=== PATIENT | male | born 1965 ===

== ENCOUNTER 2016-07-14 15:05 | Inpatient (IN) | payer BC ==
--- NOTE | 2016-07-14 15:56 | C.PDOC ---
History Of Present Illness 50 y/o male presents to the ED requesting heroin detox. Last use was this morning. Pt prescreened. Denies alcohol or other drug use. Smokes cigarettes. No physical complaints at this time. Chief Complaint (Nursing): Substance Abuse History Per: Patient History/Exam Limitations: no limitations Current Symptoms Are (Timing): Still Present Suicide/Self Injury Attempted (Context): None Modifying Factor(s): Narcotics Severity: Mild Involuntary Hold By: None Recent travel outside of the [place]: No Past Medical History Reviewed: Historical Data, Nursing Documentation, Vital Signs Vital Signs: Last Vital Signs Temp 98.3 F 07/14/16 15:14 Pulse 82 07/14/16 15:14 Resp 15 07/14/16 15:14 BP 108/73 07/14/16 15:14 Pulse Ox 95 07/14/16 16:15 - Medical History PMH: Depression Family History: States: Unknown Family Hx - Social History Hx Alcohol Use: No Hx Substance Use: Yes - Immunization History Hx Tetanus Toxoid Vaccination: No Hx Influenza Vaccination: No Hx Pneumococcal Vaccination: No Review Of Systems Except As Marked, All Systems Reviewed And Found Negative. Constitutional: Negative for: Fever Cardiovascular: Negative for: Chest Pain Respiratory: Negative for: Shortness of Breath Gastrointestinal: Negative for: Vomiting Neurological: Negative for: Headache Physical Exam - Physical Exam Appears: Non-toxic, No Acute Distress Skin: Warm, Dry, No Rash Head: Atraumatic, Normacephalic Neck: Normal, Normal ROM, Supple Chest: Symmetrical Cardiovascular: Rhythm Regular, No Murmur Respiratory: Normal Breath Sounds, No Rales, No Rhonchi, No Wheezing Extremity: Bilateral: Atraumatic Neurological/Psych: Oriented x3, Normal Speech ED Course And Treatment - Laboratory Results Result Diagrams: 07/14/16 16:08 07/14/16 16:08 O2 Sat by Pulse Oximetry: 95 (room air) Pulse Ox Interpretation: Normal Medical Decision Making Medical Decision Making: Plan: * labs * UA * CRISIS evaluation Labs ordered and reviewed. In my clinical judgment patient is medically cleared and stable for psychiatric admission. Patient accepted to Dr Jeffrey melgoza for opiate dependence Disposition - Disposition Disposition: HOSPITALIZED Disposition Time: 17:50 Condition: STABLE - POA Present On Arrival: None - Clinical Impression Clinical Impression: Opiate dependence - PA / COMMERCIAL MANAGER / Resident Statement /DO has reviewed & agrees with the documentation as recorded. - Scribe Statement The provider has reviewed the documentation as recorded by the Jose A Dent All medical record entries made by the Dirkibe were at my direction and personally dictated by me. I have reviewed the chart and agree that the record accurately reflects my personal performance of the history, physical exam, medical decision making, and the department course for this patient. I have also personally directed, reviewed, and agree with the discharge instructions and disposition. Decision To Admit - Pt Status Changed To: Hospital Disposition Of: Inpatient - Admit Certification Admit to Inpatient:: After my assessment, the patient will require hospitalization for at least two midnights. This is because of the severity of symptoms shown, intensity of services needed, and/or the medical risk in this patient being treated as an outpatient. - InPatient: Physician Admission Certification: I certify that this patient requires 2 or more midnights of care for the following reason:: patient for detox for opiates - . Bed Request Type: Detox Admitting Physician: Dallas Murphy Patient Diagnosis: Opiate dependence
[2016-07-14 16:12] LABS: BASO % 0.5 % (0.0-2.0); EOS # 0.2 K/uL (0.0-0.7); EOS % 2.5 % (0.0-4.0); HEMATOCRIT 41.2 % (35.0-51.0); LYMPH # 3.3 K/uL (1.0-4.3); LYMPH % 42.1 % (20.0-40.0); MEAN CELL VOLUME 83.9 fL (80.0-94.0); MEAN CORPUSCULAR HEMOGLOBIN 28.1 pg (27.0-31.0); MEAN CORPUSCULAR HGB CONC 33.5 g/dL (33.0-37.0); MEAN PLATELET VOLUME 8.3 fL (7.2-11.7); MONO # 0.6 K/uL (0.0-0.8); MONO % 7.5 % (0.0-10.0); RED CELL DISTRIBUTION WIDTH 12.9 % (11.5-14.5); WHITE BLOOD COUNT 7.8 K/uL (4.8-10.8)
[2016-07-14 16:25] LABS: RBC URINE 2 /hpf (0-3); URINE BILIRUBIN NEGATIVE (NEGATIVE); URINE BLOOD NEGATIVE (NEGATIVE); URINE COLOR Yellow (YELLOW); URINE GLUCOSE (UA) NORMAL (Normal); URINE KETONE NEGATIVE (NEGATIVE); URINE LEUKOCYTE ESTERASE NEG Leu/uL (Negative); URINE PROTEIN NEGATIVE (NEGATIVE); WBC URINE 1 /hpf (0-5)
[2016-07-14 16:28] LABS: CHLORIDE 102 mmol/L (98-107)
[2016-07-14 16:29] LABS: POTASSIUM 4.2 mmol/L (3.6-5.2); SODIUM 138 mmol/L (132-148)
[2016-07-14 16:32] LABS: ALB/GLOB RATIO 1.1 (1.0-2.1); ALKALINE PHOSPHATASE 80 U/L (38-126); ALT/SGPT 15 U/L (21-72); AST/SGOT 21 U/L (17-59); BILIRUBIN,TOTAL 0.7 mg/dL (0.2-1.3); BLOOD UREA NITROGEN 17 mg/dL (9-20); CARBON DIOXIDE 28 mmol/L (22-30); GFR AFRICAN-AMERICAN > 60; GLUCOSE,RANDOM 104 mg/dL (75-110); TOTAL PROTEIN 7.6 g/dL (6.3-8.3)
[2016-07-14 16:33] LABS: ALCOHOL SERUM < 10 mg/dl (0-10); CALCIUM 8.7 mg/dl (8.6-10.4)
[2016-07-14] MEDS ORDERED: Aluminum Hydroxide/Magnesium Hydroxide Susp (30 mL) PO PRN (22:40)
[2016-07-15] MEDS: buPROPion 150 mg/24 Hours XL Tab PO SCH (11:25)
--- NOTE | 2016-07-15 14:16 | PCM.PSYCH ---
Initial Psychiatric Evaluation - Initial Psychiatric Evaluation Legal Status: Capacity Chief Complaint (in patient's own words): "I need heroin detox" History of Present Illness and Precipitating Events: Pt is a 50 y/o Male. He lives with his and two children ages 11 and 15. He has correction disability after 4 spinal surgeries and a hip replacement. Pt came to [facility] for detox from Heroin. Pt has been using Heroin since he was 15. He snorts 1-10 bags of heroin a day. Pt maintained sobriety for 17 years and relapsed 1.5 years ago when he was given pain medication after surgery. Pt was in detox last February in [place], he continued outpatient [facility] [place] but relapsed in April. Around the time of his relapse he had started Suboxone maintenance therapy. This is the patient's second time in Detox and he has never been to rehab. Pt denies any marijuana, cocaine, or Xanax use. Pt smokes 15 cigarettes a day. Pt has a history of depression for which he is prescribed Wellbutrin. After detox pt plans on going back to [facility]. Pt denies any legal issues. Pt' s last use of heroin before coming to the hospital yesterday. He is currently complaining of aches, sweating, and abdominal cramping. PMH: 4 spine surgeries and hip replacement PsychHx: depression (takes Wellbutrin) FamPsychHx: denies Current Medications: Active Medications Generic Name Dose Route Start Last Admin Trade Name Freq PRN Reason Stop Dose Admin Al Hydrox/Mg Hydrox/Simethicone 30 ml 07/14/16 22:40 Maalox 30 Ml PO TID PRN Indigestion / Heartburn Bupropion HCl 150 mg 07/15/16 10:00 07/15/16 11:25 Wellbutrin Xl PO Not Given DAILY JORGE Clonidine HCl 0.1 mg 07/14/16 22:40 Catapres PO Q8 PRN COWS Score More or Equal to 5 Hydroxyzine HCl 50 mg 07/14/16 22:42 Atarax PO Q6 PRN Anxiety Ibuprofen 600 mg 07/14/16 22:40 Motrin Tab PO Q6H PRN Pain, moderate (4-7) Loperamide HCl 2 mg 07/14/16 22:40 Imodium PO Q8 PRN Diarrhea Ondansetron HCl 4 mg 07/14/16 22:40 Zofran Tab PO Q8 PRN Nausea/Vomiting Tamsulosin HCl 0.4 mg 07/15/16 10:00 07/15/16 11:25 Flomax PO Not Given DAILY JORGE Trazodone HCl 50 mg 07/14/16 21:12 Desyrel PO HS PRN Insomnia Past Psychiatric History - Past Psychiatric History Pertinent Medical Hx (Current Medical&Sleep Prob, Allergies): Allergies Allergy/AdvReac Type Severity Reaction Status Date / Time No Known Allergies Allergy Verified 07/14/16 15:13 Bupropion HCl [Wellbutrin Sr] 150 mg PO DAILY 07/14/16 Tamsulosin [Flomax] 0.4 mg PO DAILY 07/14/16 Review of Systems - Constitutional Constitutional: Sweats, Malaise - Gastrointestinal Gastrointestinal: Abdominal Pain, Cramping - Psychiatric Psychiatric: Anxiety, Change in Appetite, Depression, Irritability. absent: Hallucinations, Paranoia Mental Status Examination - Personal Presentation Personal Presentation: Looks stated age - Affect Affect: Constricted - Motor Activity Motor Activity: Calm - Reliability in Providing Information Reliability in Providing Information: Good - Speech Speech: Organized, Relevant - Mood Mood: Anxious - Formal Thought Process Formal Thought Process: No Impairment - Obsessions/Compulsions Obsessions: No Compulsions: No - Cognitive Functions Orientation: Person, Place, Situation, Time Sensorium: Alert Attention/Concentration: Attentive Abstract Thinking: [place] Estimate of Intelligence: Average Judgement: Intact, as evidence by: Insight regarding need for hospitalization Memory: Recent intact, as evidence by: Ability to recall events of the day - Risk Risk: Withdrawal, Falls - Strength & Assets Inventory Strength & Assets Inventory: Family support DSM 5 DX - DSM 5 DSM 5 Diagnosis: Opioid Withdrawal Opioid Use Disorder Major Depressive Disorder - Recommended/Plan of Treatment Treatment Recommendations and Plan of Treatment: Opioid Withdrawal -Monitor vitals and withdrawal symptoms -medications as needed -Subutex taper -clonidine prn -Trazodone for insomnia Opioid Use Disorder -CBT and [place] -attend groups and activities -support and psychoeducation -individual/group therapy -discuss need for maintenance therapy Depression -Wellbutrin -CBT -indiv/group therapy -support and psychoeducation 32 minutes
[2016-07-15] MEDS ORDERED: Buprenorphine Hydrochloride 2 mg SL ONE ×2 (15:17→16:25)
--- NOTE | 2016-07-16 10:11 | PCM.PYCHPN ---
Psychiatric Progress Note - Psychiatric Progress Note Patient seen today, length of contact: 16 min Patient Chief Complaint: "I'm in pain" Problems Identified/Issues Discussed: Pt is seen, chart reviewed, case discussed. Pt reports that he is in pain today. He says his back and hip hurt. He rates his pain a 7/10. Patient's withdrawal symptoms are better from yesterday. He is complaining of chills and sweats. Pt did not sleep last night. He woke up at 2am and could not get back to sleep. Pt denied feeling anxious or depressed. He says his appetite has improved. Pt is lethargic and has been in bed most of the day. Pt denies any S/I. Support and Psychoeducation given. Medication Change: Yes Medical Record Reviewed: Yes Mental Status Examination - Cognitive Function Orientation: Person, Place, Situation, Time Memory: Intact Attention: WNL Concentration: Poor Association: WNL Fund of Knowledge: Poor - Mood Mood: Anxious - Affect Affect: Constricted - Speech Speech: Soft - Formal Thought Process Formal Thought Process: No Impairment - Suicidal Ideation Suicidal Ideation: No - Homicidal Ideation Homicidal Ideation: No Goal/Treatment Plan - Goal/Treatment Plan Need for Continued Stay: Discharge may exacerbated symptoms, Severe functional impairment Progress Toward Problem(s) and Goals/Treatment Plan: Opioid Withdrawal -Monitor vitals and withdrawal symptoms -medications as needed -Subutex taper -clonidine prn -Trazodone for insomnia Opioid Use Disorder -CBT and [place] -attend groups and activities -support and psychoeducation -individual/group therapy -discuss need for maintenance therapy Depression -Wellbutrin -CBT -indiv/group therapy -support and psychoeducation - Smoking Cessation Smoking Cessation Initiated: Yes
[2016-07-16] MEDS: Buprenorphine Hydrochloride 2 mg SL SCH (10:55)
[2016-07-16] MEDS: buPROPion 150 mg/24 Hours XL Tab PO SCH (10:55)
[2016-07-17] MEDS: Buprenorphine Hydrochloride 2 mg SL SCH (09:43)
[2016-07-17] MEDS: buPROPion 150 mg/24 Hours XL Tab PO SCH (09:43)
--- NOTE | 2016-07-17 11:53 | PCM.PYCHPN ---
Psychiatric Progress Note - Psychiatric Progress Note Patient seen today, length of contact: 16 min Patient Chief Complaint: "I'm feeling better" Problems Identified/Issues Discussed: Patient seen and evaluated, chart reviewed and discussed with the nurse. The patient reports improvement in his mood and reports improvement in withdrawal symptoms. He still reports anxiety, headaches and back pain. As per the nurse patient is improving. Patient is scheduled to be discharged on Tuesday. He denies any suicidal ideation or homicidal ideation. Patient is taking medications and denies any side effects. Supportive therapy and psychoeducation were given. Medication Change: Yes (Subutex taper) Medical Record Reviewed: Yes Mental Status Examination - Cognitive Function Orientation: Person, Place, Situation, Time Memory: Intact Attention: WNL Concentration: WNL Association: WNL Fund of Knowledge: Poor - Mood Mood: Anxious - Affect Affect: Constricted - Speech Speech: Soft - Formal Thought Process Formal Thought Process: No Impairment - Suicidal Ideation Suicidal Ideation: No - Homicidal Ideation Homicidal Ideation: No Goal/Treatment Plan - Goal/Treatment Plan Need for Continued Stay: Discharge may exacerbated symptoms, Severe functional impairment Progress Toward Problem(s) and Goals/Treatment Plan: Opioid Withdrawal -Monitor vitals and withdrawal symptoms -medications as needed -Subutex taper -clonidine prn -Trazodone for insomnia Opioid Use Disorder -CBT and [place] -attend groups and activities -support and psychoeducation -individual/group therapy -discuss need for maintenance therapy Depression -Wellbutrin -CBT -indiv/group therapy -support and psychoeducation - Smoking Cessation Smoking Cessation Initiated: No
[2016-07-18 06:40] VITALS: O2SAT 98
[2016-07-18] MEDS: Buprenorphine Hydrochloride 2 mg SL SCH (09:27)
[2016-07-18] MEDS: buPROPion 150 mg/24 Hours XL Tab PO SCH (09:27)
--- NOTE | 2016-07-18 10:43 | PCM.PYCHDC ---
Mental Status Examination - Mental Status Examination Orientation: Person, Place, Situation, Time Memory: Intact Mood: Neutral Affect: Constricted Speech: Soft Attention: WNL Concentration: WNL Association: WNL Fund of Knowledge: WNL Formal Thought Process: No Impairment Description of patient's judgement and insight: good, fair Psychotic Thoughts and Behaviors: denies any AVH Suicidal Ideation: No Current Homicidal Ideation?: No Discharge Summary - Discharge Note Reason for Hospitalization: Pt is a 50 y/o Male. He lives with his and two children ages 11 and 15. He has prison disability after 4 spinal surgeries and a hip replacement. Pt came to [facility] for detox from Heroin. Pt has been using Heroin since he was 15. He snorts 1-10 bags of heroin a day. Pt maintained sobriety for 17 years and relapsed 1.5 years ago when he was given pain medication after surgery. Pt was in detox last February in [place], he continued outpatient [facility] in [place] but relapsed in April. Around the time of his relapse he had started Suboxone maintenance therapy. This is the patient's second time in Detox and he has never been to rehab. Pt denies any marijuana, cocaine, or Xanax use. Pt smokes 15 cigarettes a day. Pt has a history of depression for which he is prescribed Wellbutrin. After detox pt plans on going back to [facility]. Pt denies any legal issues. Pt' s last use of heroin before coming to the hospital yesterday. He is currently complaining of aches, sweating, and abdominal cramping. PMH: 4 spine surgeries and hip replacement PsychHx: depression (takes Wellbutrin) FamPsychHx: denies Consultations:: List each consultation separately and include: 1. Reason for request. 2. Findings. 3. Follow-up Summary of Hospital Course include:: 1. Description of specific treatment plan utilized for patients during their course of treatmen. 2. Summarize the time- course for resolution of acute symptoms and/or regressed behaviors. 3. Describe issues identified and worked on during hospitalization. 4. Describe medication utilized. 5. Describe medical problems identified and treated. 6. Reassessment of suicide risk Summary of Hospital Course: During the course of his stay, patient (pt) started progressively improving and he no longer remained anxious and irritable. He tolerated the withdrawal protocol very well. He didnt have any shakes, sweating or any other withdrawal symptoms. He started attending groups and meetings and started socializing. Denied any feelings of hopelessness, helplessness, and worthlessness, denied any problem with the sleep or appetite, denied suicidal ideation or homicidal ideation. Pt denied any auditory or visual hallucinations. Patient remained calm and cooperative and remained compliant with the medications. Patient tolerated the detox medications very well and denied any side effects. - Final Diagnosis (DSM 5) Condition upon Discharge: STABLE DSM 5: Opioid Withdrawal Opioid Use Disorder severe Major Depressive Disorder recurrent moderate Disposition: HOME/ ROUTINE Follow-up Treatment Plan: Education: Pt was educated and counseled about the risks and benefits of taking and not taking medications. Pt was educated and counseled about the risks of drinking and abusing drugs. Pt was educated and counseled to go to the ER or call 911 if pt develop suicidal ideation or homicidal ideation, worsening of symptoms or severe side effects of the meds. Prescriptions/Medication Reconciliation: buPROPion XL [Wellbutrin XL] 150 mg PO DAILY #30 t24 Gabapentin [Neurontin] 300 mg PO BID #60 cap traZODone [Desyrel] 50 mg PO HS PRN #30 tab PRN Reason: Insomnia - Smoking Cessation Smoking Cessation Medication prescribed: No - Antipsychotic Medications Pt discharged on 2 or more routine antipsychotic medications: No
[2016-07-18 11:12] VITALS: BP 114/73; PULSE 73; RESP 18; TEMP 98.6
== END 2016-07-18 11:15 | disposition home or self-care (01) | DRG 895 ==
LOC: C.ER 15:05 → C.7D 17:53
PROVIDERS: ADMIT Psychiatry & Neurology Psychiatry; ATTEND Psychiatry & Neurology Psychiatry
PROC: HZ2ZZZZ Detoxification Services for Substance Abuse Treatment (ICD-10-PCS; principal; 2016-07-14)
PROC: GZ3ZZZZ Medication Management (ICD-10-PCS; 2016-07-14)
PROC: HZ59ZZZ Individual Psychotherapy for Substance Abuse Treatment, Supportive (ICD-10-PCS; 2016-07-14)
PROC: HZ46ZZZ Group Counseling for Substance Abuse Treatment, Psychoeducation (ICD-10-PCS; 2016-07-14)
PROC: GZHZZZZ Group Psychotherapy (ICD-10-PCS; 2016-07-14)
PROC: GZ56ZZZ Individual Psychotherapy, Supportive (ICD-10-PCS; 2016-07-14)
DX: F11.23 Opioid dependence with withdrawal (principal); F32.9 Major depressive disorder, single episode, unspecified; F17.210 Nicotine dependence, cigarettes, uncomplicated; Z96.649 Presence of unspecified artificial hip joint